=== PATIENT | female | born 1990 | race Two or more races ===

== ENCOUNTER 2017-02-02 02:58 | Emergency (ER) | payer MEDICAID ==
[~2017-02-02] VITALS: Ht 147.3 cm; Wt 43.1 kg
[2017-02-02 08:23] VITALS: BP 91/63
== END 2017-02-02 11:36 | disposition home or self-care (01) ==
LOC: ER 02:58
DX: R42 Dizziness and giddiness (principal); J40 Bronchitis, not specified as acute or chronic; M25.531 Pain in right wrist; M54.2 Cervicalgia; M79.631 Pain in right forearm; M79.643 Pain in unspecified hand; Y08.89XA Assault by other specified means, initial encounter; Y93.89 Activity, other specified; Y99.8 Other external cause status; Y92.89 Other specified places as the place of occurrence of the external cause
CPT/HCPCS: 70450; 71020; 72125; 73090; 73100; 73120

== ENCOUNTER 2022-02-06 02:50 | Emergency (ER) | payer MEDICAID ==
[~2022-02-06] VITALS: Ht 149.9 cm; Wt 45.0 kg
[2022-02-06 03:06] VITALS: BP 110/71
[2022-02-06] MEDS ORDERED: NAP500T PO (07:07)
== END 2022-02-06 09:06 | disposition home or self-care (01) ==
LOC: ER 02:50 → EDBD 02:50 → ER 09:00
DX: S83.91XA Sprain of unspecified site of right knee, initial encounter (principal); S90.31XA Contusion of right foot, initial encounter; V09.9XXA Pedestrian injured in unspecified transport accident, initial encounter; Y93.89 Activity, other specified; Y92.481 Parking lot as the place of occurrence of the external cause; Y99.8 Other external cause status
CPT/HCPCS: 29505; 73562; 73590; 73610; 73630

== ENCOUNTER 2024-05-20 20:12 | Emergency (ER) | payer MEDICAID ==
[~2024-05-20] VITALS: Ht 149.9 cm; Wt 45.0 kg
[~2024-05-20 20:12] MED LIST: NAP500T PO
--- NOTE | 2024-05-20 21:56 | DVH ---
FRONTAL CHEST AND RIGHT RIB RADIOGRAPHS HISTORY: pain TECHNIQUE: Multiple views of the right ribs with frontal view of the chest. COMPARISON: R TIB FIB XRAY on DOS: 02/06/22 FINDINGS: The trachea is midline. The cardiac silhouette and mediastinum are within normal limits. No pneumothorax, pleural effusions, or consolidations. There is no evidence of an acute fracture, dislocation, blastic, or lytic lesions. No radiopaque foreign bodies. No superficial soft tissue abnormalities. Impression: 1. No evidence of an acute rib fracture. 2. No acute cardiopulmonary disease.
[2024-05-20] MEDS ORDERED: AZITTAB PO (22:05)
[2024-05-20] MEDS ORDERED: IBUP-1454 PO (22:05)
--- NOTE | 2024-05-20 22:06 | ED.PDOC ---
SOB-HPI HPI Comments 34-year-old female complaining of right-sided rib pain x1 week. States she initially had rib pain one week ago. Went to the urgent Care was treated for bronchitis. States two days ago she was coughing and felt a more short rib pain. States she finished her antibiotics and still feels mild shortness a breath. Cough is nonproductive. She was given prednisone and Tessalon. No nausea no vomiting no diarrhea patient denies any trauma. Chief Complaint: Rib Pain Time Seen by MD: 20:14 Primary Care Provider: unknown Reviewed notes: Nurses Notes Information Source: Patient Mode of Arrival: Ambulatory Severity: Moderate Past Medical History PAST MEDICAL HISTORY: Denies Surgical History: COMMUNITY RELATIONS LIAISON History: No Pertinent COMMUNITY RELATIONS LIAISON History Family History Family History: Unknown Social History Smoker: Non-Smoker Alcohol: Occasionally Drugs: Denies Drug Use Lives In: Home Constitutional: reports: chills, fatigue; denies: diaphoresis, fever, malaise, sweats, weakness, others EENTM: denies: blurred vision, double vision, ear bleeding, ear discharge, ear drainage, ear pain, ear ringing, eye pain, eye redness, hearing loss, mouth pain, mouth swelling, nasal discharge, nose bleeding, nose congestion, nose pain, photophobia, tearing, throat pain, throat swelling, voice changes, others Respiratory: reports: cough, SOB at rest Cardiovascular: reports: chest pain; denies: dizzy spells, diaphoresis, Dyspnea on exertion, edema, irregular heart beat, left arm pain, lightheadedness, palpitations, PND, syncope, others Gastrointestinal: denies: abdomen distended, abdominal pain, blood streaked bowels, constipated, diarrhea, dysphagia, difficulty swallowing, hematemesis, melena, nausea, poor appetite, poor fluid intake, rectal bleeding, rectal pain, vomiting, others Genitourinary: denies: abnormal vagina bleeding, burning, dyspareunia, dysuria, flank pain, frequency, hematuria, incontinence, pain, , vagina di scharge, urgency, others Neurological: denies: dizziness, fainting, headache, left sided numbness, left sided weakness, numbness, paresthesia, pre-existing deficit, right sided numbness, right sided weakness, seizure, speech problems, tingling, tremors, weakness, others Musculoskeletal: denies: back pain, gout, joint pain, joint swelling, muscle pain, muscle stiffness, neck pain, others Integumetry: denies: bruises, change in color, change in hair/nails, dryness, laceration, lesions, lumps, rash, wounds, others Allergic/Immunocompromised: denies: Difficulty Healing, Frequent Infections, Hives, Itching, others Physical Exam General Appearance: No Apparent Distress, Normal HEENT: Normal ENT Inspection, Pharynx Normal, TMs Normal Neck: Full Range of Motion, Non-Tender, Normal, Normal Inspection Respiratory: Chest Non-Tender, Lungs Clear, No Accessory Muscle Use, No Respiratory Distress, Normal Breath Sounds, Other (Right-sided chest wall tender to palpation) Cardiovascular: No Edema, No JVD, No Murmur, No Gallop, Normal Peripheral Pulses, Regular Rate/Rhythm Breast Exam: Deferred Gastrointestinal: No Organomegaly, Non Tender, No Pulsatile Mass, Normal Bowel Sounds, Soft Genitalia: Deferred Pelvic: Deferred Rectal: Deferred Extremities: No calf tenderness, Normal capillary refill, Normal inspection, Normal range of motion, Non-tender, No pedal edema Musculoskeletal : Apperance: Normal Neurologic: Alert, missile pad mechanic II-XII nml as Tested, No Motor Deficits, Normal Affect, Normal Mood, No Sensory Deficits Cerebellar Function: Normal Reflexes: Normal Skin: Dry, Normal Color, Warm Lymphatic: No Adenopathy Was a procedure done? Was a procedure done?: No Differential Dx Differential Diagnosis: Asthma, Bronchitis, Pneumonia, Pulmonary Embolism, R espiratory Distress X-Ray, Labs, Meds, VS Vital Signs Date Time Temp Pulse Resp B/P (MAP) Pulse Ox O2 Delivery O2 Flow Rate FiO2 05/20/24 21:12 16 99 Room Air* 0 21 05/20/24 21:05 99.6 74 16 116/76 (89) 99 X-Ray, Labs, Meds, VS Comment Imaging: X-rays and CT scans were reviewed and interpreted by this provider, imaging shows no fractures and no pathological disease. Pending radiology review. Laboratory: Labs reviewed and interpreted by this provider. No significant abnormalities noted. Patient has prior medical visits reviewed. Med reconciliation performed Vital signs reviewed Time of 1ST Reevaluation: 22:06 Reevaluation 1ST: Improved Patient Education/Counseling: Diagnosis, Treatment, Need For Follow Up (Patient advised to follow-up in the emergency room in the next 24 to 48 hours if symptoms do not improve. Advised follow-up with PCP in the next 3 to 5 days. Patient verbalized understanding. ) Family Education/Counseling: Diagnosis, Treatment Departure 1 Departure Time of Disposition: 22:05 Impression: Primary Impression: Bronchitis Additional Impression: Costochondritis Disposition: 01 HOME / SELF CARE / HOMELESS Condition: Fair e-Prescriptions Ibuprofen (Ibuprofen) 600 Mg Tab 1 TAB PO TID, #40 TAB Prov: JOSUE HIGGINS 05/20/24 Azithromycin (Zithromax Z-Sacha) 250 Mg Tab 250 MG PO DAILY for 5 Days, #6 TAB Prov: JOSUE HIGGINS 05/20/24 Discharged With: Self Critical Care Note Critical Care Time?: No Stability Stability form required: No Heart Score Heart Score: Heart Score Response (Comments) Value History N/A 0 EKG N/A 0 Age N/A 0 Risk Factors N/A 0 Troponin N/A 0 Total 0 JOSUE HIGGINS May 20, 2024 22:06
[2024-05-20] MEDS ORDERED: PROM1SOL4 PO (23:05)
[2024-05-20] MEDS ORDERED: PRED20TA2 PO (23:05)
[2024-05-20 23:29] VITALS: BP 118/84; PULSE 63; RESP 16; TEMP 97.9; O2SAT 98
== END 2024-05-20 23:32 | disposition home or self-care (01) ==
LOC: ER 20:12
DX: J40 Bronchitis, not specified as acute or chronic (principal); M94.0 Chondrocostal junction syndrome [Tietze]; Z98.890 Other specified postprocedural states
CPT/HCPCS: 71101